=== PATIENT | male | born 1980 | race Caucasian/White ===

== ENCOUNTER 2020-10-24 10:57 | Outpatient (CLI) | payer OTHER | END 2020-10-24 11:07 | disposition home or self-care (01) | LOC: MRI 10:57 | DX: M75.32 Calcific tendinitis of left shoulder (principal); M75.52 Bursitis of left shoulder | CPT/HCPCS: 73218 ==

== ENCOUNTER 2024-06-13 13:24 | Outpatient (CLI) | payer OTHER | END 2024-06-13 13:46 | disposition home or self-care (01) | LOC: TOM 13:24 | DX: K42.1 Umbilical hernia with gangrene (principal); R10.30 Lower abdominal pain, unspecified ==